=== PATIENT | female | born 1955 | race Caucasian/White ===

== ENCOUNTER → 2020-07-05 | Outpatient (CLI) | payer BC, MEDICARE ==
--- NOTE | 2020-07-05 14:36 | Diagnostic Imaging Report ---
PROCEDURE: CT Sinus w/o Contrast. TECHNIQUE: Multiple contiguous axial images were obtained through the sinuses without the use of intravenous contrast. Coronal reformations were performed. All CT scans use one or more of the following dose optimizing techniques: automated exposure control, MA and/or KvP adjustment based on a patient size and exam type, or iterative reconstruction. INDICATION: Chronic sinusitis. Headaches. COMPARISON: None. FINDINGS: Fluid levels and frothy secretions are seen in the bilateral maxillary sinuses. Additional mucosal thickening is seen throughout the bilateral ethmoid sinuses. A small amount of retained secretions are seen in the right frontoethmoid recess. Postsurgical changes are visualized in the paranasal sinuses. The mastoid air cells are well pneumatized. The bony nasal septum is midline. No acute facial fractures. The globes and orbits are symmetric and unremarkable. Included intracranial contents show no acute abnormalities. The included soft tissues of the head are normal in appearance. IMPRESSION: 1. Findings concerning for acute sinusitis involving the bilateral maxillary sinuses. Additional mucosal thickening is seen involving the ethmoid sinuses and right frontoethmoid recess. Dictated by: Dictated on workstation # [id number]
== END ==
LOC: RAD FS 13:07
PROVIDERS: ATTEND Otolaryngology Otolaryngology/Facial Plastic Surgery
DX: J32.2 Chronic ethmoidal sinusitis (principal)
CPT/HCPCS: 70486

== ENCOUNTER 2023-01-20 07:35 | Emergency (ER) | payer MEDICARE ==
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
[2023-01-20] MEDS ORDERED: FLEET ENEMA ADULT 1 EA BTL ONE (07:57)
[2023-01-20] MEDS ORDERED: FLEET ENEMA ADULT 1 EA BTL PR ONE (08:00)
[2023-01-20 08:03] VITALS: BP 143/74
== END 2023-01-20 08:11 | disposition home or self-care (01) ==
LOC: EDUNIT# 07:35 → ER FS 07:36
DX: K59.03 Drug induced constipation (principal); T40.425A Adverse effect of tramadol, initial encounter
CPT/HCPCS: 99281

== ENCOUNTER → 2023-01-28 | Outpatient (CLI) | payer MEDICARE | LOC: RAD 09:58 | PROVIDERS: ATTEND Family Medicine | DX: M54.6 Pain in thoracic spine (principal); S22.080D Wedge compression fracture of T11-T12 vertebra, subsequent encounter for fracture with routine healing ==